=== PATIENT | female | born 1955 | race Asian ===

== ENCOUNTER 2019-09-05 09:36 | Inpatient (IN) | payer OTHER ==
[2019-09-01 15:57] LABS: CLARITY,URINE CLEAR (Clear); COLOR,URINE YELLOW (Yellow); GLUCOSE, URINE NEGATIVE (Neg); KETONES,URINE NEGATIVE (Neg); LEUKOCYTE ESTERASE ,URINE NEGATIVE (Neg); NITRITES, URINE NEGATIVE (Neg); OCCULT BLOOD,URINE NEGATIVE (Neg); PROTEIN,URINE NEGATIVE (Neg); UA COLLECTION TYPE CLN CATCH MIDSTREAM; UROBILINOGEN,URINE 0.2 E.U/dL (0.2-1.0)
[2019-09-01 16:01] LABS: BASOPHILS # (AUTO) 0.1 X10'3 (0-0.2); BASOPHILS % (AUTO) 0.9 % (0-1); EOSINOPHILS # (AUTO) 0.2 X10'3 (0-0.9); EOSINOPHILS % (AUTO) 2.3 % (0-6); LYMPHOCYTES # (AUTO) 2.1 X10'3 (1.1-4.8); LYMPHOCYTES % (AUTO) 31.6 % (21-51); MEAN CORPUSCULAR HEMOGLOBIN 32.3 PG (27.0-31.0); MEAN CORPUSCULAR HGB CONC 34.2 g/dL (33.0-36.5); MEAN CORPUSCULAR VOLUME 94.7 FL (78-98); MEAN PLATELET VOLUME 9.7 FL (7.4-10.4); MONOCYTES # (AUTO) 0.5 X10'3 (0-0.9); MONOCYTES % (AUTO) 7.3 % (2-12); NEUTROPHILS # (AUTO) 3.8 X10'3 (1.8-7.7); NEUTROPHILS % (AUTO) 57.9 % (42-75); PRE OP HEMATOCRIT 40.5 % (35.0-45.0); PRE OP HEMOGLOBIN 13.8 g/dL (12.0-16.0); PRE OP PLATELET COUNT 200 X10'3 (140-440); RED BLOOD COUNT 4.28 X10'6 (4.20-5.60); RED CELL DISTRIBUTION WIDTH 12.6 % (11.5-14.5)
[2019-09-01 16:14] LABS: ALBUMIN 3.7 G/DL (3.4-5.0); ALBUMIN/GLOBULIN RATIO 0.9 (1.1-1.5); ALKALINE PHOSPHATASE 136 IU/L (46-116); BLOOD UREA NITROGEN 9 MG/DL (7-18); BUN/CREATININE RATIO 16.7 (6.6-38.0); CALCIUM 8.8 MG/DL (8.5-10.1); CHLORIDE 108 MMOL/L (99-107); CREATININE 0.54 MG/DL (0.40-0.90); PRE OP ALT 64 U/L (30-65); PRE OP ANION GAP 6 (8-16); PRE OP AST 41 U/L (10-37); PRE OP BILIRUB, TOTAL 0.3 MG/DL (0.0-1.0); PRE OP GLUCOSE 118 MG/DL (70-104); PRE OP POTASSIUM 3.5 MMOL/L (3.4-5.1); PRE OP SODIUM 146 MMOL/L (135-145); TOTAL CARBON DIOXIDE 31.6 MMOL/L (24-32); TOTAL PROTEIN 7.8 G/DL (6.4-8.2); eGFR > 90 ML/MIN
[2019-09-01 16:17] LABS: PRE OP INR < 0.9 INR; PRE OP PARTIAL THROMB. TIME 26 SECONDS (22-32); PRE OP PROTIME 9.8 SECONDS (9.0-12.0)
[2019-09-05] VITALS (27 sets, daily range): BP systolic 94–170; BP diastolic 49–88
[~2019-09-05] VITALS: Ht 154.9 cm; Wt 56.2 kg
[~2019-09-05 09:36] MED LIST: AMLO10TA4 PO; ASPI81TA52 PO; ATOR40TA PO; CARV-50 PO; CHOL400C8 PO; DOCUMENT DATE & TIME OF BETA-BLOCKER PO ONE; OXYB10TA4 PO; ceFOXitin 2 GM ADDvantage bag 100 ML IV ONE; famotidine 20mg tablet PO ONE; ringers solution, lacted 1,000 ML IV SCH
[2019-09-05] MEDS ORDERED: ceFAZolin 1000mg inj ONE (09:54)
[2019-09-05] MEDS ORDERED: morphine 10mg/ml inj. ONE (09:54)
[2019-09-05] MEDS ORDERED: BUPIVAcaine/PF 2.5 mg/ml (0.25%) 30ml vial ONE (09:54)
[2019-09-05] MEDS ORDERED: clindamycin phosphate 40gm vag cream ONE (09:54)
[2019-09-05] MEDS ORDERED: LIDOcaine 1% 30ml preserv. free vial ONE (09:54)
[2019-09-05] MEDS ORDERED: vasoPRESSIN 20 units/ml inj. ONE (09:55)
[2019-09-05] MEDS ORDERED: carvedilol 6.25mg tablet PO ONE (10:00)
[2019-09-05] MEDS ORDERED: LIDOcaine 1% (10mg/ml) 2ml vial ONE (10:19)
[2019-09-05] MEDS ORDERED: ePHEDrine 50MG/ML INJ. ONE (11:30)
[2019-09-05] MEDS ORDERED: fluoroscein sod 10% (100mg/ml) 5ml vial ONE (11:30)
[2019-09-05] MEDS ORDERED: glycopyrrolate 0.2mg/ml inj ONE (11:30)
[2019-09-05] MEDS ORDERED: neostigmine methylsulfate 1 MG/ML 10ml vial ONE (11:30)
[2019-09-05] MEDS ORDERED: sevoflurane 250ml liquid IH ONE (11:30)
[2019-09-05] MEDS ORDERED: fentaNYL /PF 50mcg/ml 5ml ampule ONE (11:31)
[2019-09-05] MEDS ORDERED: midazolam 2 mg/2 ml injection ONE (11:31)
[2019-09-05] MEDS ORDERED: LIDOcaine 2% (20mg/ml) 5ml vial ONE (11:53)
[2019-09-05] MEDS ORDERED: propofol inj 20 ML IV ONE (11:53)
[2019-09-05] MEDS ORDERED: rocuronium 10mg/ml inj IV ONE (11:53)
[2019-09-05] MEDS ORDERED: ondansetron/PF 4mg/2ml inj ONE (11:54)
[2019-09-05] MEDS ORDERED: dexamethasone sod phosphate 4mg/ml inj. ONE (11:54)
[2019-09-05] MEDS ORDERED: ringers solution, lacted 1,000 ML IV SCH (12:36)
[2019-09-05] MEDS ORDERED: meperidine/PF 25mg/ml syringe IV PRN ×3 (12:40)
[2019-09-05] MEDS ORDERED: ondansetron/PF 4mg/2ml inj IV PRN ×2 (12:40→14:15)
[2019-09-05] MEDS ORDERED: proCHLORperazine 10 MG/2 ml inj IV PRN (12:40)
[2019-09-05] MEDS ORDERED: morphine 4 MG/ML inj SYRINge IV PRN ×2 (12:40)
[2019-09-05] MEDS: ringers solution, lacted 1,000 ML IV SCH (14:13)
[2019-09-05] MEDS ORDERED: diphenhydrAMINE 50 mg/ml inj IV PRN (14:15)
[2019-09-05] MEDS ORDERED: HYDROcodone/acetaminophen 5mg/325mg tablet PO PRN ×2 (14:15)
[2019-09-05] MEDS ORDERED: naloxone 0.4 mg/ml inj IV PRN (14:15)
[2019-09-05] MEDS ORDERED: temazepam 15mg capsule PO PRN (14:15)
[2019-09-05] MEDS ORDERED: normal saline 500ml IV soln 500 ML IV PRN (14:15)
[2019-09-05] MEDS ORDERED: CADD PCA waste documentation MC PRN (14:15)
[2019-09-05] MEDS ORDERED: sugammadex 200mg/2ml injection IV ONE (14:18)
--- NOTE | 2019-09-05 14:18 | NUR ---
Received from OR via BED, accompanied by Anesthesiologist DR CASTAÑEDA and report given by Anesthesiologist. PT REMAINS SEDATED W/ETT, NO S/S OF DISTRESS/DISCOMFORT, ABDOMEN W/3 LAP SITES W/BANDAIDS CDI, CARLOS CATHETER TO GRAVITY DRAINAGE W/FLUORESCEIN. Addendum: 09/05/19 at 1452 by Norah Howard RN Amended: Links added.
[2019-09-05] MEDS: HYDROmorphone/NS 1 mg/ml CADD 50 ML IV SCH ×5 (15:16→23:00)
--- NOTE | 2019-09-05 17:08 | NUR ---
Report called to receiving nurse. Transferred PT VIA BED IN STABLE CONDITION, PT REMAINS DROWSY, BUT ANSWERS QUESTIONS APPROPRIATELY, DENIES PAIN, 1 BAG OF PERSONAL Belongings SENT W/PT TO ROOM 350A, RECEIVING RN AT BEDSIDE TO RECEIVE PT, BLL, CALL LIGHT GIVEN, SIDE RAILS UP X 2. Special Issues communicated to receiving nurse. YES. Addendum: 09/05/19 at 1724 by Norah Howard RN Amended: Links added.
--- NOTE | 2019-09-05 18:27 | NUR ---
Problems reprioritized. Patient report given, questions answered & plan of care reviewed with MILTON ROSE RN.
--- NOTE | 2019-09-05 18:30 | NUR ---
Patient in room [facility]. I have received report from CINDY HERNÁNDEZ and had the opportunity to ask questions and assume patient care.
[2019-09-05] MEDS: carvedilol 6.25mg tablet PO SCH (20:22)
[2019-09-05] MEDS: ketorolac trometh. 30mg/ml inj. IV PRN (20:24)
[2019-09-06] VITALS: BP 158/82
[2019-09-06] MEDS: ringers solution, lacted 1,000 ML IV SCH ×3 (00:22→10:32)
[2019-09-06] MEDS: HYDROmorphone/NS 1 mg/ml CADD 50 ML IV SCH ×5 (01:00→07:53)
[2019-09-06 05:00] LABS: BASOPHILS % (AUTO) 0.1 % (0-1); EOSINOPHILS % (AUTO) 0 % (0-6); HEMATOCRIT 38.6 % (35.0-45.0); LYMPHOCYTES # (AUTO) 0.9 X10'3 (1.1-4.8); LYMPHOCYTES % (AUTO) 8.1 % (21-51); MEAN CORPUSCULAR HEMOGLOBIN 32.1 PG (27.0-31.0); MEAN CORPUSCULAR HGB CONC 33.6 g/dL (33.0-36.5); MEAN CORPUSCULAR VOLUME 95.4 FL (78-98); MEAN PLATELET VOLUME 9.7 FL (7.4-10.4); MONOCYTES # (AUTO) 0.6 X10'3 (0-0.9); MONOCYTES % (AUTO) 5.5 % (2-12); NEUTROPHILS # (AUTO) 9.8 X10'3 (1.8-7.7); NEUTROPHILS % (AUTO) 86.3 % (42-75); PLATELET COUNT 174 X10'3 (140-440); RED BLOOD COUNT 4.04 X10'6 (4.20-5.60); RED CELL DISTRIBUTION WIDTH 12.8 % (11.5-14.5); WHITE BLOOD COUNT 11.4 X10'3 (4.5-11.0)
--- NOTE | 2019-09-06 06:20 | NUR ---
Patient in room [facility] 350. I have received report from Inés HERNÁNDEZ and had the opportunity to ask questions and assume patient care.
--- NOTE | 2019-09-06 06:20 | NUR ---
Problems reprioritized. Patient report given, questions answered & plan of care reviewed with EVELYN RN.
[2019-09-06] MEDS: carvedilol 6.25mg tablet PO SCH (07:29)
[2019-09-06 07:31] VITALS: BP 141/60
[2019-09-06] MEDS ORDERED: amLODIPine 5mg tablet PO SCH (08:00)
[2019-09-06] MEDS ORDERED: atorvastatin 20mg tablet PO SCH (08:00)
--- NOTE | 2019-09-06 10:42 | NUR ---
Student Medication Administration: For this medication-pass time frame, all medication were reviewed, dispensed, administered and documented per hospital policy by Debbie nursing professor.
[2019-09-06 10:55] VITALS: BP 138/65
[2019-09-06 11:00] VITALS: BP 135/71
[2019-09-06] MEDS: ketorolac trometh. 30mg/ml inj. IV PRN (11:01)
--- NOTE | 2019-09-06 11:15 | NUR ---
Student documentation: I have reviewed and agree with all interventions, assessments performed and documented by Debbie, nursing care partner.
--- NOTE | 2019-09-06 11:20 | NUR ---
Patient ambulated 300 feet earlier this am, voided 200, pt had 335 post residual after bladder scanning. Instructed pt to ambulate again and void again. Pt ambulated, voided 150 and post residual was 278 in her bladder. Informed and educated pt she would need shi catheter for retaining urine. Patient agreeable.
--- NOTE | 2019-09-06 11:49 | NUR ---
Inserted Shi Catheter, patient tolerated well and urine now draining into shi catheter drainage bag. Minimal discomfort.
--- NOTE | 2019-09-06 12:07 | NUR ---
Patient report given, questions answered & plan of care reviewed with Kimberley student nurse.
--- NOTE | 2019-09-06 12:14 | NUR ---
Patient in room [facility]. I have received report from Debbie senior web developer and had the opportunity to ask questions and assume patient care.
== END 2019-09-06 17:46 | disposition home or self-care (01) | DRG 743 ==
LOC: PAS 09:36 → SUR 3N 17:39
PROVIDERS: ADMIT Specialist; ATTEND Specialist
PROC: 0UT9FZZ Resection of Uterus, Via Natural or Artificial Opening With Percutaneous Endoscopic Assistance (ICD-10-PCS; 2019-09-05)
PROC: 0UT74ZZ Resection of Bilateral Fallopian Tubes, Percutaneous Endoscopic Approach (ICD-10-PCS; 2019-09-05)
PROC: 0UT24ZZ Resection of Bilateral Ovaries, Percutaneous Endoscopic Approach (ICD-10-PCS; 2019-09-05)
PROC: 0USG4ZZ Reposition Vagina, Percutaneous Endoscopic Approach (ICD-10-PCS; 2019-09-05)
PROC: 0UQF0ZZ Repair Cul-de-sac, Open Approach (ICD-10-PCS; 2019-09-05)
PROC: 0JQC0ZZ Repair Pelvic Region Subcutaneous Tissue and Fascia, Open Approach (ICD-10-PCS; 2019-09-05)
PROC: 0TSD4ZZ Reposition Urethra, Percutaneous Endoscopic Approach (ICD-10-PCS; 2019-09-05)
PROC: 0DNU4ZZ Release Omentum, Percutaneous Endoscopic Approach (ICD-10-PCS; principal; 2019-09-05 11:30)
DX: N81.5 Vaginal enterocele (principal); N81.11 Cystocele, midline; N36.42 Intrinsic sphincter deficiency (ISD); I10 Essential (primary) hypertension; N39.3 Stress incontinence (female) (male); N73.6 Female pelvic peritoneal adhesions (postinfective); F17.210 Nicotine dependence, cigarettes, uncomplicated; N95.2 Postmenopausal atrophic vaginitis
CPT/HCPCS: Z7506; Z7508; 36415; 80053; 81003; 82948; 85025; 85610; 85730; 86885; 86900; 86901; A4215; A4314; A4355; A4618; A6250; A7000; C1758; C1771; C9399; G0378; J0690; J0694; J1100; J1170; J1885; J2001; J2250; J2270; J2405; J2704; J2710; J3010; J3490; J7120

== ENCOUNTER 2019-09-07 03:14 | Emergency (ER) | payer OTHER ==
[~2019-09-07] VITALS: Ht 154.9 cm; Wt 54.5 kg
[~2019-09-07 03:14] MED LIST changes: -ASPI81TA52 PO; -DOCUMENT DATE & TIME OF BETA-BLOCKER PO ONE; -ceFOXitin 2 GM ADDvantage bag 100 ML IV ONE; -famotidine 20mg tablet PO ONE; -ringers solution, lacted 1,000 ML IV SCH
--- NOTE | 2019-09-07 03:25 | NUR ---
Family has the large drainage bag so it was switched over and appears to be draining. Perhaps there was a mucous plug in the small connector.
--- NOTE | 2019-09-07 03:34 | NUR ---
had pt drink a cup of water. Bladder scan was done several times, most it read was 25
[2019-09-07] MEDS ORDERED: HYDROcodone/acetaminophen 5mg/325mg tablet PO ONE (03:45)
--- NOTE | 2019-09-07 03:55 | NUR ---
Adriane walker in ED - 09/07/19 at 0356 by WADE Gave patient applesauce because he asked for something light to eat.
--- NOTE | 2019-09-07 04:24 | NUR ---
pt having urine flow freely into gravity bedside bag. Dr. Sanchez to DC Pt. Pt to see Dr. Schaeffer today.
[2019-09-07 04:25] VITALS: BP 123/86
== END 2019-09-07 04:27 | disposition home or self-care (01) ==
LOC: ER 03:14
DX: T83.098A Other mechanical complication of other urinary catheter, initial encounter (principal); Z79.82 Long term (current) use of aspirin; Z90.710 Acquired absence of both cervix and uterus; Y84.6 Urinary catheterization as the cause of abnormal reaction of the patient, or of later complication, without mention of misadventure at the time of the procedure; Y92.89 Other specified places as the place of occurrence of the external cause
CPT/HCPCS: 99284

== ENCOUNTER 2019-09-07 05:20 | Emergency (ER) | payer OTHER ==
[~2019-09-07] VITALS: Ht 154.9 cm; Wt 56.8 kg
[2019-09-07 07:42] VITALS: BP 165/85
== END 2019-09-07 07:45 | disposition home or self-care (01) ==
LOC: ER 05:21
DX: Z46.6 Encounter for fitting and adjustment of urinary device (principal)
CPT/HCPCS: 99281

== ENCOUNTER 2020-02-28 04:26 | Emergency (ER) | payer OTHER ==
[~2020-02-28] VITALS: Ht 149.9 cm; Wt 52.5 kg
[2020-02-28 05:01] LABS: URINE HCG NEGATIVE (NEG)
[2020-02-28 05:25] LABS: CLARITY,URINE SLIGHTLY CLOUDY (Clear); COLOR,URINE YELLOW (Yellow); GLUCOSE, URINE NEGATIVE (Neg); KETONES,URINE NEGATIVE (Neg); LEUKOCYTE ESTERASE ,URINE NEGATIVE (Neg); NITRITES, URINE NEGATIVE (Neg); OCCULT BLOOD,URINE NEGATIVE (Neg); PH,URINE 7.5 (4.8-8.0); PROTEIN,URINE TRACE mg/dl (Neg)
[2020-02-28] MEDS ORDERED: ondansetron 4mg rapidly disintigrating tab PO ONE (05:35)
[2020-02-28] MEDS ORDERED: mag hydrox/Alum hydrox/simeth 30ml oral suspension PO ONE (05:35)
[2020-02-28] MEDS ORDERED: dicyclomine 10 MG capsule PO ONE (05:35)
[2020-02-28] MEDS ORDERED: LIDOcaine Viscous 15ml cup MM ONE (05:35)
[2020-02-28 05:52] LABS: UA COLLECTION TYPE CLN CATCH MIDSTREAM
[2020-02-28 05:54] LABS: AMORPHOUS PHOSPHATES 1+; BACTERIA,URINE FEW /HPF (Neg); MUCUS STRANDS NONE SEEN /LPF (Neg); RBC,URINE NONE SEEN /HPF (0-2); SQUAMOUS EPITHELIAL CELL,UR MODERATE /LPF (FEW); WBC,URINE 0-4 /HPF (0-4)
[2020-02-28 05:59] LABS: ALANINE AMINOTRANSFERASE 335 U/L (12-78); ALBUMIN 3.5 G/DL (3.4-5.0); ALKALINE PHOSPHATASE 206 IU/L (46-116); ANION GAP 8 (8-16); ASPARTATE AMINO TRANSFERASE 682 U/L (10-37); BLOOD UREA NITROGEN 18 MG/DL (7-18); BUN/CREATININE RATIO 22.5 (6.6-38.0); CALCIUM 8.7 MG/DL (8.5-10.1); CHLORIDE 107 MMOL/L (99-107); GLUCOSE 192 MG/DL (70-104); LIPASE 232 U/L (73-393); POTASSIUM 3.3 MMOL/L (3.5-5.1); SODIUM 143 MMOL/L (135-145); TOTAL CARBON DIOXIDE 27.6 MMOL/L (24-32); eGFR 72 ML/MIN
[2020-02-28 06:17] LABS: BASOPHILS % (AUTO) 0.4 % (0-1); EOSINOPHILS # (AUTO) 0.1 X10'3 (0-0.9); EOSINOPHILS % (AUTO) 0.8 % (0-6); HEMATOCRIT 38.7 % (35.0-45.0); HEMOGLOBIN 12.8 g/dl (12.0-16.0); LYMPHOCYTES # (AUTO) 0.9 X10'3 (1.1-4.8); LYMPHOCYTES % (AUTO) 10.7 % (21-51); MEAN CORPUSCULAR HEMOGLOBIN 30.5 PG (27.0-31.0); MEAN CORPUSCULAR HGB CONC 33.1 g/dL (33.0-36.5); MEAN CORPUSCULAR VOLUME 92.2 FL (78-98); MEAN PLATELET VOLUME 10.4 FL (7.4-10.4); MONOCYTES # (AUTO) 0.5 X10'3 (0-0.9); MONOCYTES % (AUTO) 5.4 % (2-12); NEUTROPHILS % (AUTO) 82.7 % (42-75); PLATELET COUNT 145 X10'3 (140-440); RED BLOOD COUNT 4.19 X10'6 (4.20-5.60); RED CELL DISTRIBUTION WIDTH 14.8 % (11.5-14.5); WHITE BLOOD COUNT 8.5 X10'3 (4.5-11.0)
[2020-02-28] MEDS ORDERED: ONDA4TAB6 PO (07:01)
[2020-02-28 07:14] VITALS: BP 147/67
[2020-02-29 07:09] LABS: HBSAG SCREEN Negative (Negative); HEP A AB, IGM Negative (Negative); HEP B CORE AB, IGM Negative (Negative); HEPATITIS C ANTIBODY <0.1 s/co ratio (0.0-0.9)
== END 2020-02-28 07:26 | disposition home or self-care (01) ==
LOC: ER 04:27
DX: K21.9 Gastro-esophageal reflux disease without esophagitis (principal); R74.0 Nonspecific elevation of levels of transaminase and lactic acid dehydrogenase [LDH]; I10 Essential (primary) hypertension; Z90.710 Acquired absence of both cervix and uterus; Z79.899 Other long term (current) drug therapy
CPT/HCPCS: 36415; 71045; 80053; 80074; 81001; 81025; 83690; 85025; 93005; 99285

== ENCOUNTER 2021-06-01 19:47 | Emergency (ER) | payer OTHER ==
[~2021-06-01] VITALS: Ht 149.9 cm; Wt 52.3 kg
[~2021-06-01 19:47] MED LIST changes: +ONDA4TAB6 PO
[2021-06-01 21:13] LABS: BASOPHILS # (AUTO) 0.1 X10'3 (0-0.2); BASOPHILS % (AUTO) 0.8 % (0-1); EOSINOPHILS # (AUTO) 0.1 X10'3 (0-0.9); EOSINOPHILS % (AUTO) 2.1 % (0-6); HEMATOCRIT 36.2 % (35.0-45.0); HEMOGLOBIN 12.1 g/dl (12.0-16.0); LYMPHOCYTES # (AUTO) 1.8 X10'3 (1.1-4.8); LYMPHOCYTES % (AUTO) 27.1 % (21-51); MEAN CORPUSCULAR HEMOGLOBIN 32.2 PG (27.0-31.0); MEAN CORPUSCULAR HGB CONC 33.5 g/dL (33.0-36.5); MEAN CORPUSCULAR VOLUME 96.1 FL (78-98); MEAN PLATELET VOLUME 10.3 FL (7.4-10.4); MONOCYTES # (AUTO) 0.5 X10'3 (0-0.9); MONOCYTES % (AUTO) 7.9 % (2-12); NEUTROPHILS # (AUTO) 4.1 X10'3 (1.8-7.7); NEUTROPHILS % (AUTO) 62.1 % (42-75); PLATELET COUNT 180 X10'3 (140-440); RED BLOOD COUNT 3.77 X10'6 (4.20-5.60); RED CELL DISTRIBUTION WIDTH 13.1 % (11.5-14.5); WHITE BLOOD COUNT 6.5 X10'3 (4.5-11.0)
[2021-06-01 21:17] LABS: D-DIMER 0.78 MG/L FEU (0-0.50)
[2021-06-01 21:21] LABS: ALANINE AMINOTRANSFERASE 35 U/L (12-78); ALBUMIN 3.7 G/DL (3.4-5.0); ALBUMIN/GLOBULIN RATIO 1.1 (1.1-1.5); ALKALINE PHOSPHATASE 125 IU/L (46-116); ANION GAP 8 (8-16); ASPARTATE AMINO TRANSFERASE 31 U/L (10-37); BILIRUBIN,TOTAL 0.4 MG/DL (0.1-1.0); BLOOD UREA NITROGEN 13 MG/DL (7-18); BUN/CREATININE RATIO 12.1 (6.6-38.0); CALCIUM 8.1 MG/DL (8.5-10.1); CHLORIDE 109 MMOL/L (99-107); CREATININE 1.07 MG/DL (0.40-0.90); GLUCOSE 118 MG/DL (70-104); POTASSIUM 3.9 MMOL/L (3.5-5.1); SODIUM 144 MMOL/L (135-145); TOTAL CARBON DIOXIDE 27.1 MMOL/L (24-32); eGFR 51 ML/MIN
[2021-06-01 21:28] LABS: TROPONIN I < 0.04 NG/ML (0.0-0.05)
[2021-06-01] MEDS ORDERED: POTA10TA19 PO (21:35)
[2021-06-01] MEDS ORDERED: FURO-150 PO (21:35)
[2021-06-01] MEDS ORDERED: furosemide 20MG tablet PO ONE (21:40)
[2021-06-01 21:47] VITALS: BP 173/80
== END 2021-06-01 21:48 | disposition home or self-care (01) ==
LOC: ER 19:48
DX: I50.9 Heart failure, unspecified (principal); I11.0 Hypertensive heart disease with heart failure; R06.00 Dyspnea, unspecified; R06.02 Shortness of breath; R09.89 Other specified symptoms and signs involving the circulatory and respiratory systems; R06.01 Orthopnea; Z90.710 Acquired absence of both cervix and uterus; Z79.899 Other long term (current) drug therapy
CPT/HCPCS: 36415; 71045; 80053; 83880; 84484; 85025; 85379; 93005; 99285

== ENCOUNTER 2021-12-20 12:00 | Outpatient (CLI) | payer OTHER ==
[2021-12-20 15:02] LABS: CLARITY,URINE CLEAR (Clear); COLOR,URINE YELLOW (Yellow); GLUCOSE, URINE NEGATIVE (Neg); KETONES,URINE NEGATIVE (Neg); LEUKOCYTE ESTERASE ,URINE NEGATIVE (Neg); NITRITES, URINE NEGATIVE (Neg); OCCULT BLOOD,URINE NEGATIVE (Neg); PH,URINE 6.5 (4.8-8.0); PROTEIN,URINE NEGATIVE (Neg); UROBILINOGEN,URINE 0.2 E.U/dL (0.2-1.0)
[2021-12-20 15:12] LABS: UA COLLECTION TYPE CLN CATCH MIDSTREAM
[2021-12-20 15:16] LABS: BASOPHILS # (AUTO) 0.1 X10'3 (0-0.2); BASOPHILS % (AUTO) 0.9 % (0-1); EOSINOPHILS # (AUTO) 0.2 X10'3 (0-0.9); EOSINOPHILS % (AUTO) 3.7 % (0-6); LYMPHOCYTES # (AUTO) 1.5 X10'3 (1.1-4.8); LYMPHOCYTES % (AUTO) 25.9 % (21-51); MEAN CORPUSCULAR HEMOGLOBIN 31.2 PG (27.0-31.0); MEAN CORPUSCULAR HGB CONC 33.3 g/dL (33.0-36.5); MEAN CORPUSCULAR VOLUME 93.8 FL (78-98); MEAN PLATELET VOLUME 9.7 FL (7.4-10.4); MONOCYTES # (AUTO) 0.5 X10'3 (0-0.9); MONOCYTES % (AUTO) 8.6 % (2-12); NEUTROPHILS # (AUTO) 3.6 X10'3 (1.8-7.7); NEUTROPHILS % (AUTO) 60.9 % (42-75); PRE OP HEMATOCRIT 39.3 % (35.0-45.0); PRE OP HEMOGLOBIN 13.1 g/dL (12.0-16.0); PRE OP PLATELET COUNT 175 X10'3 (140-440); RED BLOOD COUNT 4.19 X10'6 (4.20-5.60); RED CELL DISTRIBUTION WIDTH 12.9 % (11.5-14.5)
[2021-12-20 15:34] LABS: ALBUMIN 3.8 G/DL (3.4-5.0); ALBUMIN/GLOBULIN RATIO 1.1 (1.1-1.5); ALKALINE PHOSPHATASE 133 IU/L (46-116); BLOOD UREA NITROGEN 13 MG/DL (7-18); CALCIUM 8.5 MG/DL (8.5-10.1); CHLORIDE 109 MMOL/L (99-107); CREATININE 0.65 MG/DL (0.40-0.90); PRE OP ALT 38 U/L (30-65); PRE OP ANION GAP 9 (8-16); PRE OP AST 26 U/L (10-37); PRE OP BILIRUB, TOTAL 0.3 MG/DL (0.0-1.0); PRE OP GLUCOSE 115 MG/DL (70-104); PRE OP POTASSIUM 3.8 MMOL/L (3.4-5.1); PRE OP SODIUM 144 MMOL/L (135-145); TOTAL CARBON DIOXIDE 26.5 MMOL/L (24-32); TOTAL PROTEIN 7.2 G/DL (6.4-8.2); eGFR > 90 ML/MIN
== END 2021-12-20 23:59 | disposition home or self-care (01) ==
LOC: LAB 12:00 → EDSTATUS 12-27 10:00
PROVIDERS: ATTEND Podiatrist Foot & Ankle Surgery
DX: Z01.818 Encounter for other preprocedural examination (principal); M79.671 Pain in right foot; M67.471 Ganglion, right ankle and foot; Z20.822 Contact with and (suspected) exposure to COVID-19
CPT/HCPCS: 36415; 80053; 81003; 85025; 93005; U0003; U0005

== ENCOUNTER 2022-08-12 18:13 | Emergency (ER) | payer MEDICARE, OTHER ==
[~2022-08-12] VITALS: Ht 151.8 cm; Wt 53.0 kg
[~2022-08-12 18:13] MED LIST changes: +MECL-231 PO; +OMEP20CA15 PO; +ONDA4TAB12 PO; -ONDA4TAB6 PO; -OXYB10TA4 PO
[2022-08-13 01:47] VITALS: BP 111/93
[2022-08-13] MEDS ORDERED: lactulose 20gm/30ml cup PO ONE (02:35)
[2022-09-11] MEDS ORDERED: ASPI-1265 PO (15:41)
[2022-09-11] MEDS ORDERED: MECL-226 PO (15:42)
[2022-09-11] MEDS ORDERED: OMEG1CAP13 PO (16:44)
== END 2022-08-13 02:58 | disposition home or self-care (01) ==
LOC: ER 18:15
DX: K59.00 Constipation, unspecified (principal); I10 Essential (primary) hypertension
CPT/HCPCS: 99281; 99283

== ENCOUNTER 2022-09-19 07:00 | Day surgery (SDC) | payer OTHER ==
[2022-09-11 16:10] LABS: CLARITY,URINE CLEAR (Clear); GLUCOSE, URINE NEGATIVE (Neg); KETONES,URINE NEGATIVE (Neg); LEUKOCYTE ESTERASE ,URINE NEGATIVE (Neg); NITRITES, URINE NEGATIVE (Neg); OCCULT BLOOD,URINE TRACE-INTACT (Neg); PH,URINE 6.5 (4.8-8.0); PROTEIN,URINE NEGATIVE (Neg); UROBILINOGEN,URINE 0.2 E.U/dL (0.2-1.0)
[2022-09-11 16:12] LABS: COLOR,URINE STRAW (Yellow); UA COLLECTION TYPE CLN CATCH MIDSTREAM
[2022-09-11 16:16] LABS: BACTERIA,URINE FEW /HPF (Neg); MUCUS STRANDS NONE SEEN /LPF (Neg); RBC,URINE 0-2 /HPF (0-2); SQUAMOUS EPITHELIAL CELL,UR FEW /LPF (FEW); WBC,URINE NONE SEEN /HPF (0-4)
[2022-09-11 16:24] LABS: BASOPHILS # (AUTO) 0.1 X10'3 (0-0.2); BASOPHILS % (AUTO) 1.2 % (0-1); EOSINOPHILS # (AUTO) 0.3 X10'3 (0-0.9); EOSINOPHILS % (AUTO) 4.5 % (0-6); LYMPHOCYTES # (AUTO) 1.6 X10'3 (1.1-4.8); LYMPHOCYTES % (AUTO) 25.7 % (21-51); MEAN CORPUSCULAR HEMOGLOBIN 31.6 PG (27.0-31.0); MEAN CORPUSCULAR VOLUME 93.1 FL (78-98); MEAN PLATELET VOLUME 9.2 FL (7.4-10.4); MONOCYTES # (AUTO) 0.4 X10'3 (0-0.9); NEUTROPHILS # (AUTO) 3.9 X10'3 (1.8-7.7); NEUTROPHILS % (AUTO) 61.6 % (42-75); PRE OP HEMATOCRIT 40.2 % (35.0-45.0); PRE OP HEMOGLOBIN 13.7 g/dL (12.0-16.0); PRE OP PLATELET COUNT 199 X10'3 (140-440); RED BLOOD COUNT 4.32 X10'6 (4.20-5.60); RED CELL DISTRIBUTION WIDTH 15.5 % (11.5-14.5)
[2022-09-11 16:54] LABS: ALBUMIN/GLOBULIN RATIO 0.9 (1.1-1.5); ALKALINE PHOSPHATASE 174 IU/L (46-116); BLOOD UREA NITROGEN 15 MG/DL (7-18); BUN/CREATININE RATIO 25.9 (6.6-38.0); CALCIUM 9.2 MG/DL (8.5-10.1); CHLORIDE 106 MMOL/L (99-107); CREATININE 0.58 MG/DL (0.40-0.90); PRE OP ALT 71 U/L (30-65); PRE OP ANION GAP 8 (8-16); PRE OP AST 51 U/L (10-37); PRE OP BILIRUB, TOTAL 0.7 MG/DL (0.0-1.0); PRE OP GLUCOSE 116 MG/DL (70-104); PRE OP POTASSIUM 3.9 MMOL/L (3.4-5.1); PRE OP SODIUM 144 MMOL/L (135-145); TOTAL CARBON DIOXIDE 29.9 MMOL/L (24-32); TOTAL PROTEIN 8.4 G/DL (6.4-8.2); eGFR > 90 ML/MIN
[2022-09-19] VITALS (9 sets, daily range): BP systolic 128–164; BP diastolic 62–82
[~2022-09-19] VITALS: Ht 147.3 cm; Wt 56.4 kg
[~2022-09-19 07:00] MED LIST changes: +ASPI-1265 PO; +MECL-226 PO; -MECL-231 PO; +OMEG-5 PO; -ONDA4TAB12 PO; +ceFAZolin 1,000 MG in NS 50ML IVPB IV ONE; +famotidine 20mg tablet PO ONE; +ringers solution, lacted 1,000 ML IV SCH
[2022-09-19] MEDS ORDERED: morphine 2 MG/ML inj. syringe IV PRN (07:15)
[2022-09-19] MEDS ORDERED: ondansetron/PF 4mg/2ml inj IV PRN (07:15)
[2022-09-19] MEDS ORDERED: hydrALAZINE 20mg/ml inj. IV PRN (07:15)
[2022-09-19] MEDS ORDERED: fentaNYL/PF 50MCG/1 ML 2ML syringe IV PRN ×2 (07:15)
[2022-09-19] MEDS ORDERED: morphine 4 MG/ML inj SYRINge IV PRN (07:15)
[2022-09-19] MEDS ORDERED: labetalol 20mg/4ml (5mg/ml) syringe IV PRN (07:15)
[2022-09-19] MEDS ORDERED: ringers solution, lacted 1,000 ML IV SCH (07:15)
[2022-09-19] MEDS ORDERED: BUPIVAcaine/PF 5 mg/ml 10ml ONE (09:22)
[2022-09-19] MEDS ORDERED: LIDOcaine 2% (20mg/ml) 5ml vial ONE (10:11)
[2022-09-19] MEDS ORDERED: fentaNYL/PF 50MCG/1 ML 2ML syringe ONE (10:11)
[2022-09-19] MEDS ORDERED: propofol inj 20 ML IV ONE (10:11)
[2022-09-19] MEDS ORDERED: midazolam 1 mg/ML 2ml injection ONE (10:11)
[2022-09-19] MEDS ORDERED: ondansetron/PF 4mg/2ml inj ONE (10:18)
[2022-09-19] MEDS ORDERED: bacitracin 15gm ointment TP ONE (10:35)
--- NOTE | 2022-09-19 10:49 | NUR ---
Received from OR via [facility] IN STABLE CONDITION , accompanied by Anesthesiologist and BRAIDING MACHINE OPERATOR report given by BRAIDING MACHINE OPERATOR AND Anesthesiolgist. Addendum: 09/19/22 at 1136 by Chasity Heredia RN Amended: Links added.
--- NOTE | 2022-09-19 12:19 | NUR ---
PATIENT DISCHARGED FROM PACU IN STABLE CONDITION AFTER WRITTEN AND VERBAL DISCHARGE INSTRUCTIONS GIVEN. PATIENT AND GAVE VERBAL UNDERSTANDING OF INSTRUCTIONS. PATIENT LEFT FACILITY VIA WHEELCHAIR WITH RN. Addendum: 09/19/22 at 1243 by Chasity Heredia RN Amended: Links added.
== END 2022-09-19 12:19 | disposition home or self-care (01) ==
LOC: PAS 07:00
PROVIDERS: ATTEND Podiatrist Foot & Ankle Surgery
DX: M67.471 Ganglion, right ankle and foot (principal); I11.0 Hypertensive heart disease with heart failure; I50.9 Heart failure, unspecified; K21.9 Gastro-esophageal reflux disease without esophagitis; G47.00 Insomnia, unspecified; M19.90 Unspecified osteoarthritis, unspecified site; Z79.899 Other long term (current) drug therapy; Z98.890 Other specified postprocedural states; Z98.49 Cataract extraction status, unspecified eye; Z90.710 Acquired absence of both cervix and uterus; Z82.61 Family history of arthritis
CPT/HCPCS: 28090; 36415; 71046; 80053; 81001; 82948; 85025; 93005; A6222; J0690; J2250; J2405; J2704; J3010; J3490; J7030; J7120; Z7506; Z7512; A4215; A4618; A6449; A7000